=== PATIENT | female | born 1995 | race Two or more races ===

== ENCOUNTER 2022-07-08 13:12 | Outpatient (CLI) | payer OTHER | END 2022-07-08 14:51 | disposition home or self-care (01) | LOC: PRENATAL 13:12 | PROVIDERS: ATTEND Obstetrics & Gynecology Maternal & Fetal Medicine | DX: O35.9XX0 Maternal care for (suspected) fetal abnormality and damage, unspecified, not applicable or unspecified (principal); O99.280 Endocrine, nutritional and metabolic diseases complicating pregnancy, unspecified trimester; Z3A.20 20 weeks gestation of pregnancy ==

== ENCOUNTER 2022-09-27 10:11 | Outpatient (CLI) | payer OTHER | END 2022-09-27 13:25 | disposition home or self-care (01) | LOC: PRENATAL 10:11 | PROVIDERS: ATTEND Obstetrics & Gynecology Maternal & Fetal Medicine | DX: O26.849 Uterine size-date discrepancy, unspecified trimester (principal); O36.8199 Decreased fetal movements, unspecified trimester, other fetus; O99.280 Endocrine, nutritional and metabolic diseases complicating pregnancy, unspecified trimester; Z3A.32 32 weeks gestation of pregnancy ==

== ENCOUNTER 2022-11-05 16:38 | Inpatient (IN) | payer OTHER ==
[~2022-11-05] VITALS: Ht 160 cm; Wt 97.5 kg
[2022-11-05] MEDS ORDERED: SYNTHROID75 MCG PO (17:25)
[2022-11-05] MEDS ORDERED: PRENATAL 19 TA1 EAC2 PO (17:26)
== END 2022-11-08 15:15 | disposition home or self-care (01) | DRG 807 ==
LOC: LDR 16:38 → OB/GYN 11-06 18:09
PROVIDERS: ADMIT Obstetrics & Gynecology; ATTEND Obstetrics & Gynecology
PROC: 3E0P7VZ Introduction of Hormone into Female Reproductive, Via Natural or Artificial Opening (ICD-10-PCS; 2022-11-05)
PROC: 4A1HXCZ Monitoring of Products of Conception, Cardiac Rate, External Approach (ICD-10-PCS; 2022-11-05)
PROC: 10E0XZZ Delivery of Products of Conception, External Approach (ICD-10-PCS; principal; 2022-11-06)
PROC: 0UQG7ZZ Repair Vagina, Via Natural or Artificial Opening (ICD-10-PCS; 2022-11-06)
PROC: 3E033VJ Introduction of Other Hormone into Peripheral Vein, Percutaneous Approach (ICD-10-PCS; 2022-11-06)
DX: O71.4 Obstetric high vaginal laceration alone (principal); Z37.0 Single live birth; Z3A.37 37 weeks gestation of pregnancy; Z20.822 Contact with and (suspected) exposure to COVID-19

== ENCOUNTER → 2024-01-27 10:03 | Outpatient (CLI) | payer OTHER ==
[~2024-01-27 10:03] MED LIST: PRENATAL 19 TA1 EAC2 PO; SYNTHROID75 MCG PO
== END | disposition home or self-care (01) ==
LOC: PRENATAL 10:03
PROVIDERS: ATTEND Obstetrics & Gynecology Maternal & Fetal Medicine
DX: O36.80X0 Pregnancy with inconclusive fetal viability, not applicable or unspecified (principal); Z36.82 Encounter for antenatal screening for nuchal translucency; O99.282 Endocrine, nutritional and metabolic diseases complicating pregnancy, second trimester; Z3A.14 14 weeks gestation of pregnancy

== ENCOUNTER → 2024-03-12 13:44 | Outpatient (CLI) | payer OTHER | END | disposition home or self-care (01) | LOC: PRENATAL 13:44 | PROVIDERS: ATTEND Obstetrics & Gynecology Maternal & Fetal Medicine | DX: O44.00 Complete placenta previa NOS or without hemorrhage, unspecified trimester (principal); O99.280 Endocrine, nutritional and metabolic diseases complicating pregnancy, unspecified trimester; Z3A.20 20 weeks gestation of pregnancy ==

== ENCOUNTER 2024-05-05 05:47 | Emergency (ER) | payer OTHER ==
[~2024-05-05] VITALS: Ht 160 cm; Wt 93.4 kg
[2024-05-05] MEDS ORDERED: ACETAMINOPHEN 500 MG GEL..CAP PO STA (08:50)
[2024-05-05] MEDS ORDERED: DUI500 PO (08:55)
[2024-05-05] MEDS ORDERED: TYLENOL ARTHRI650 MG PO (08:55)
== END 2024-05-05 09:12 | disposition home or self-care (01) ==
LOC: ER 05:49
DX: K08.9 Disorder of teeth and supporting structures, unspecified (principal); Z91.018 Allergy to other foods

== ENCOUNTER 2024-05-30 08:25 | Outpatient (CLI) | payer OTHER ==
[~2024-05-30 08:25] MED LIST changes: +DUI500 PO; +TYLENOL ARTHRI650 MG PO
== END 2024-05-30 08:26 | disposition home or self-care (01) ==
LOC: PRENATAL 08:25
PROVIDERS: ATTEND Obstetrics & Gynecology Maternal & Fetal Medicine
DX: O26.849 Uterine size-date discrepancy, unspecified trimester (principal); O36.8199 Decreased fetal movements, unspecified trimester, other fetus; O99.280 Endocrine, nutritional and metabolic diseases complicating pregnancy, unspecified trimester; Z3A.32 32 weeks gestation of pregnancy